=== PATIENT | female | born 1950 | race Caucasian/White ===

== ENCOUNTER 2020-05-14 11:37 | Inpatient (IN) | payer MEDICARE, OTHER ==
[~2020-05-14] VITALS: Ht 160 cm; Wt 45.0 kg
[2020-05-14] MEDS ORDERED: IV NORMAL SALINE 1000ML BAG 1,000 ML IV ONE (12:00)
[2020-05-14 12:03] LABS: BASO % 0 % (0-3); EOS % 0 % (0-3); HEMATOCRIT 42.3 % (36.0-47.0); HEMOGLOBIN 14.7 g/dL (12.0-15.5); LYMPH # 0.8 x10^3/uL (1.0-4.8); LYMPH % 15 % (24-48); MEAN CORPUSCULAR HEMOGLOBIN 31 pg (25-35); MEAN CORPUSCULAR HGB CONC 35 g/dL (31-37); MEAN CORPUSCULAR VOLUME 90 fL (79-100); MONO # 0.3 x10^3/uL (0.0-1.1); MONO % 5 % (0-9); NEUT # 4.1 x10^3/uL (1.8-7.7); NEUT % 79 % (31-73); PLATELET COUNT 308 x10^3/uL (140-400); RED BLOOD COUNT 4.72 x10^6/uL (3.50-5.40); RED CELL DISTRIBUTION WIDTH 12.9 % (11.5-14.5); WHITE BLOOD COUNT 5.2 x10^3/uL (4.0-11.0)
[2020-05-14 12:14] LABS: CALCIUM 9.3 mg/dL (8.5-10.1); CREATININE 0.6 mg/dL (0.6-1.0); GFR 99.4; POTASSIUM 3.1 mmol/L (3.5-5.1)
[2020-05-14 12:20] LABS: ALBUMIN 3.5 g/dL (3.4-5.0); ALBUMIN/GLOBULIN RATIO 1.3 (1.0-1.7); TOTAL BILIRUBIN 0.8 mg/dL (0.2-1.0); TOTAL PROTEIN 6.3 g/dL (6.4-8.2)
[2020-05-14 12:28] LABS: BILIRUBIN,URINE NEGATIVE (NEG); CLARITY,URINE CLEAR; COLOR,URINE YELLOW; NITRITE,URINE NEGATIVE (NEG); PH,URINE 6.5 (<5.0-8.0); PROTEIN,URINE NEGATIVE (NEG-TRACE); UROBILINOGEN,URINE 0.2 mg/dL (0.2 mg/dL)
[2020-05-14 12:45] LABS: AMORPHOUS SEDIMENT,UR PRESENT /HPF
[2020-05-14 12:46] LABS: BACTERIA,URINE 0 /HPF (0-FEW); WBC,URINE 0 /HPF (0-4)
--- NOTE | 2020-05-14 12:59 | PHYS DOC ---
Past Medical History Past Medical History: Unknown Past Surgical History: Other Additional Past Surgical Histo: unk Smoking Status: Unknown if ever smoked Alcohol Use: None Additional Information: unknown Social History Narrative: unknown drug use General Adult EDM: Chief Complaint: OVERDOSE HPI: HPI: Patient is a 69-year-old female with a history of anxiety and depression who presents via EMS after taking an overdose of 0.25 mg alprazolam and 5 mg Ambien. Unsure on the exact numbers of pills taken. She apparently did not take anything but those 2 medications. Patient is unable to provide any history at this time secondary to excessive somnolence [] Review of Systems: Review of Systems: Review of systems is unobtainable secondary to altered mental status Heart Score: Risk Factors: Risk Factors: DM, Current or recent (<one month) smoker, HTN, HLP, family history of CAD, obesity. Risk Scores: Score 0 - 3: 2.5% MACE over next 6 weeks - Discharge Home Score 4 - 6: 20.3% MACE over next 6 weeks - Admit for Clinical Observation Score 7 - 10: 72.7% MACE over next 6 weeks - Early Invasive Strategies Current Medications: Current Medications Medications (Trade) Dose Ordered Sig/Salty Start Time Stop Time Status Last Admin Dose Admin Sodium Chloride 1,000 ml @ 125 mls/hr Q8H 05/14/20 12:41 05/15/20 12:40 Allergies: Allergies: Allergies Coded Allergies Type Severity Reaction Last Updated Verified Unable to Assess 05/14/20 No Physical Exam: PE: Constitutional: Well developed, well nourished, no acute distress, non-toxic appearance. [] HENT: Normocephalic, atraumatic, bilateral external ears normal, oropharynx moist, no oral exudates, nose normal. [] Eyes: PERRLA, EOMI, conjunctiva normal, no discharge. [] Neck: Normal range of motion, no tenderness, supple, no stridor. [] Cardiovascular:Heart rate regular rhythm, no murmur [] Lungs & Thorax: Bilateral breath sounds clear to auscultation [] Abdomen: Bowel sounds normal, soft, no tenderness, no masses, no pulsatile masses. [] Skin: Warm, dry, no erythema, no rash. [] Back: No tenderness, no CVA tenderness. [] Extremities: No tenderness, no cyanosis, no clubbing, ROM intact, no edema. [] Neurologic: Alert and oriented X 3, normal motor function, normal sensory function, no focal deficits noted. [] Psychologic: Affect normal, judgement normal, mood normal. [] Current Patient Data: Labs: Laboratory Tests Test 05/14/20 11:44 05/14/20 11:55 White Blood Count 5.2 x10^3/uL (4.0-11.0) Red Blood Count 4.72 x10^6/uL (3.50-5.40) Hemoglobin 14.7 g/dL (12.0-15.5) Hematocrit 42.3 % (36.0-47.0) Mean Corpuscular Volume 90 fL (79-100) Mean Corpuscular Hemoglobin 31 pg (25-35) Mean Corpuscular Hemoglobin Concent 35 g/dL (31-37) Red Cell Distribution Width 12.9 % (11.5-14.5) Platelet Count 308 x10^3/uL (140-400) Neutrophils (%) (Auto) 79 % (31-73) H Lymphocytes (%) (Auto) 15 % (24-48) L Monocytes (%) (Auto) 5 % (0-9) Eosinophils (%) (Auto) 0 % (0-3) Basophils (%) (Auto) 0 % (0-3) Neutrophils # (Auto) 4.1 x10^3/uL (1.8-7.7) Lymphocytes # (Auto) 0.8 x10^3/uL (1.0-4.8) L Monocytes # (Auto) 0.3 x10^3/uL (0.0-1.1) Eosinophils # (Auto) 0.0 x10^3/uL (0.0-0.7) Basophils # (Auto) 0.0 x10^3/uL (0.0-0.2) Sodium Level 134 mmol/L (136-145) L Potassium Level 3.1 mmol/L (3.5-5.1) L Chloride Level 99 mmol/L (98-107) Carbon Dioxide Level 29 mmol/L (21-32) Anion Gap 6 (6-14) Blood Urea Nitrogen 15 mg/dL (7-20) Creatinine 0.6 mg/dL (0.6-1.0) Estimated GFR (Cockcroft-Gault) 99.4 BUN/Creatinine Ratio 25 (6-20) H Glucose Level 181 mg/dL (70-99) H Glucose (Fingerstick) 179 mg/dL (70-99) H Calcium Level 9.3 mg/dL (8.5-10.1) Magnesium Level 2.0 mg/dL (1.8-2.4) Total Bilirubin 0.8 mg/dL (0.2-1.0) Aspartate Amino Transferase (AST) 19 U/L (15-37) Alanine Aminotransferase (ALT) 30 U/L (14-59) Alkaline Phosphatase 61 U/L (46-116) Troponin I Quantitative < 0.017 ng/mL (0.000-0.055) Total Protein 6.3 g/dL (6.4-8.2) L Albumin 3.5 g/dL (3.4-5.0) Albumin/Globulin Ratio 1.3 (1.0-1.7) Thyroid Stimulating Hormone (TSH) 0.770 uIU/mL (0.358-3.74) Ethyl Alcohol Level < 10 mg/dL (0-10) Urine Collection Type Unknown Urine Color Yellow Urine Clarity Clear Urine pH 6.5 (<5.0-8.0) Urine Specific [place] 1.020 (1.000-1.030) Urine Protein Negative mg/dL (NEG-TRACE) Urine Glucose (UA) Negative mg/dL (NEG) Urine Ketones (Stick) Negative mg/dL (NEG) Urine Blood Negative (NEG) Urine Nitrite Negative (NEG) Urine Bilirubin Negative (NEG) Urine Urobilinogen Dipstick 0.2 mg/dL (0.2 mg/dL) Urine Leukocyte Esterase Negative (NEG) Urine RBC 1-2 /HPF (0-2) Urine WBC 0 /HPF (0-4) Urine Squamous Epithelial Cells None /LPF Urine Amorphous Sediment Present /HPF Urine Bacteria 0 /HPF (0-FEW) Urine Mucus Slight /LPF Laboratory Tests 05/14/20 11:44 Laboratory Tests 05/14/20 11:44 Vital Signs: Vital Signs Date Time Temp Pulse Resp B/P (MAP) Pulse Ox O2 Delivery O2 Flow Rate FiO2 05/14/20 11:40 98.6 99 16 113/63 (80) 99 Room Air 98.6 EKG: EKG: [EKG: Sinus tachycardia right bundle branch block rate of 90] Radiology/Procedures: Radiology/Procedures: [] Course & Med Decision Making: Course & Med Decision Making Pertinent Labs and Imaging studies reviewed. (See chart for details) [ED course: Evaluation reveals a 69-year-old female with a Xanax and Ambien overdose. She is very sleepy but will arouse with vigorous stimuli her vital signs have remained stable throughout her stay in the department. She is protecting her airway with no difficulty. She was given some IV fluids I spoke with the hospitalist who will admit for close observation.] Dragon Disclaimer: Dragon Disclaimer: This electronic medical record was generated, in whole or in part, using a voice recognition dictation system. Departure Departure Impression: Primary Impression: Benzodiazepine overdose Qualified Codes: T42.4X4A - Poisoning by benzodiazepines, undetermined, initial encounter Disposition: ADMITTED INPATIENT Admitting Physician: DULCE MARIA Condition: GUARDED Justicifation of Admission Dx: Justifications for Admission: Justification of Admission Dx: Yes Altered Mental Status: Altered Mental Status DOREEN RODRIGUEZ DO May 14, 2020 12:59
--- NOTE | 2020-05-14 13:21 | EKG ---
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
[2020-05-14 13:27] LABS: ACETAMIN < 2.0 mcg/ml (10-30); SALIC < 2.8 mg/dL (2.8-20.0)
[2020-05-14] MEDS ORDERED: ONDANSETRON PF 4 MG/2 ML VIAL. IVP PRN (13:45)
[2020-05-14] MEDS ORDERED: MAG HYDROX/ALUMINUM HYD/SIMETH 30 ML ORAL.SUSP PO PRN (13:45)
--- NOTE | 2020-05-14 14:02 | PDOC1 ---
History and Physical Date of Admission Date of Admission DATE: 05/14/20 TIME: 13:54 Identification/Chief Complaint Chief Complaint Overdose Source Source: Caregiver History of Present Illness History of Present Illness Patient is a 69-year-old female with past medical history of anxiety who presents to the emergency department after intentional overdose of Ambien and Xanax. History was obtained from patient's sister, who states that patient called her at 830 this morning stating that she was not feeling well. When patient's sister went to visit her at her home patient reported that she had taken 1 bottle of Ambien and 1 bottle of Xanax, and left a note saying "tell children I had heart attack, I will watch him and having ". Patient's sister notes that she has been dealing with anxiety for the past 2 weeks that has been worsening. She has been treated with Zoloft, Ambien, and Xanax. Patient sister also admits to worsening anxiety about her current job and global pandemic. Past Medical History Psych: Anxiety Past Surgical History Past Surgical History Partial colectomy Family History Family History Mother depression Social History Smoke: No ALCOHOL: none Drugs: None Current Problem List Problem List Problems Medical Problems: (1) Benzodiazepine overdose Status: Acute (2) Intentional overdose Status: Acute Current Medications Current Medications Current Medications Sodium Chloride 1,000 ml @ 1,000 mls/hr 1X ONCE IV Last administered on 05/14/20at 11:50; Start 05/14/20 at 12:00; Stop 05/14/20 at 12:59; Status DC Sodium Chloride 1,000 ml @ 125 mls/hr Q8H IV ; Start 05/14/20 at 12:41; Stop 05/15/20 at 12:40 Ondansetron HCl (Zofran) 4 mg PRN Q6HRS PRN IVP NAUSEA/VOMITING; Start 05/14/20 at 13:45; Status UNV Al Hydroxide/Mg Hydroxide (Mylanta Plus Xs) 30 ml PRN Q3HRS PRN PO HEARTBURN / GAS; Start 05/14/20 at 13:45; Status UNV Allergies Allergies: Coded Allergies: Unable to Assess (Unverified , 05/14/20) ROS Review of System Review of systems unable to be obtained due to patient's clinical condition Physical Exam General: Other (Sleeping comfortably, difficult to arouse) HEENT: PERRLA Lungs: Clear to auscultation, Normal air movement Heart: S1S2, RRR Cardiovascular: S1, S2 Abdomen: Normal bowel sounds, No tenderness Extremities: No clubbing, No edema Skin: No rashes, No breakdown Neuro: Normal tone Psych/Mental Status: Other (Somnolent) Vitals Vitals Vital Signs Date Time Temp Pulse Resp B/P (MAP) Pulse Ox O2 Delivery O2 Flow Rate FiO2 05/14/20 13:34 88 105/68 (80) 98 Nasal Cannula 3.0 05/14/20 11:40 98.6 16 98.6 Labs Labs Laboratory Tests Test 05/14/20 11:44 05/14/20 11:55 White Blood Count 5.2 x10^3/uL (4.0-11.0) Red Blood Count 4.72 x10^6/uL (3.50-5.40) Hemoglobin 14.7 g/dL (12.0-15.5) Hematocrit 42.3 % (36.0-47.0) Mean Corpuscular Volume 90 fL (79-100) Mean Corpuscular Hemoglobin 31 pg (25-35) Mean Corpuscular Hemoglobin Concent 35 g/dL (31-37) Red Cell Distribution Width 12.9 % (11.5-14.5) Platelet Count 308 x10^3/uL (140-400) Neutrophils (%) (Auto) 79 % (31-73) Lymphocytes (%) (Auto) 15 % (24-48) Monocytes (%) (Auto) 5 % (0-9) Eosinophils (%) (Auto) 0 % (0-3) Basophils (%) (Auto) 0 % (0-3) Neutrophils # (Auto) 4.1 x10^3/uL (1.8-7.7) Lymphocytes # (Auto) 0.8 x10^3/uL (1.0-4.8) Monocytes # (Auto) 0.3 x10^3/uL (0.0-1.1) Eosinophils # (Auto) 0.0 x10^3/uL (0.0-0.7) Basophils # (Auto) 0.0 x10^3/uL (0.0-0.2) Sodium Level 134 mmol/L (136-145) Potassium Level 3.1 mmol/L (3.5-5.1) Chloride Level 99 mmol/L (98-107) Carbon Dioxide Level 29 mmol/L (21-32) Anion Gap 6 (6-14) Blood Urea Nitrogen 15 mg/dL (7-20) Creatinine 0.6 mg/dL (0.6-1.0) Estimated GFR (Cockcroft-Gault) 99.4 BUN/Creatinine Ratio 25 (6-20) Glucose Level 181 mg/dL (70-99) Glucose (Fingerstick) 179 mg/dL (70-99) Calcium Level 9.3 mg/dL (8.5-10.1) Magnesium Level 2.0 mg/dL (1.8-2.4) Total Bilirubin 0.8 mg/dL (0.2-1.0) Aspartate Amino Transf (AST/SGOT) 19 U/L (15-37) Alanine Aminotransferase (ALT/SGPT) 30 U/L (14-59) Alkaline Phosphatase 61 U/L (46-116) Troponin I Quantitative < 0.017 ng/mL (0.000-0.055) Total Protein 6.3 g/dL (6.4-8.2) Albumin 3.5 g/dL (3.4-5.0) Albumin/Globulin Ratio 1.3 (1.0-1.7) Thyroid Stimulating Hormone (TSH) 0.770 uIU/mL (0.358-3.74) Salicylates Level < 2.8 mg/dL (2.8-20.0) Salicylate Last Dose Date Unknown Salicylate Last Dose Time Unknown Acetaminophen Level < 2.0 mcg/ml (10-30) Acetaminophen Last Dose Date Unknown Acetaminophen Last Dose Time Unknown Ethyl Alcohol Level < 10 mg/dL (0-10) Urine Collection Type Unknown Urine Color Yellow Urine Clarity Clear Urine pH 6.5 (<5.0-8.0) Urine Specific [place] 1.020 (1.000-1.030) Urine Protein Negative mg/dL (NEG-TRACE) Urine Glucose (UA) Negative mg/dL (NEG) Urine Ketones (Stick) Negative mg/dL (NEG) Urine Blood Negative (NEG) Urine Nitrite Negative (NEG) Urine Bilirubin Negative (NEG) Urine Urobilinogen Dipstick 0.2 mg/dL (0.2 mg/dL) Urine Leukocyte Esterase Negative (NEG) Urine RBC 1-2 /HPF (0-2) Urine WBC 0 /HPF (0-4) Urine Squamous Epithelial Cells None /LPF Urine Amorphous Sediment Present /HPF Urine Bacteria 0 /HPF (0-FEW) Urine Mucus Slight /LPF Laboratory Tests Test 05/14/20 11:44 05/14/20 11:55 White Blood Count 5.2 x10^3/uL (4.0-11.0) Red Blood Count 4.72 x10^6/uL (3.50-5.40) Hemoglobin 14.7 g/dL (12.0-15.5) Hematocrit 42.3 % (36.0-47.0) Mean Corpuscular Volume 90 fL (79-100) Mean Corpuscular Hemoglobin 31 pg (25-35) Mean Corpuscular Hemoglobin Concent 35 g/dL (31-37) Red Cell Distribution Width 12.9 % (11.5-14.5) Platelet Count 308 x10^3/uL (140-400) Neutrophils (%) (Auto) 79 % (31-73) Lymphocytes (%) (Auto) 15 % (24-48) Monocytes (%) (Auto) 5 % (0-9) Eosinophils (%) (Auto) 0 % (0-3) Basophils (%) (Auto) 0 % (0-3) Neutrophils # (Auto) 4.1 x10^3/uL (1.8-7.7) Lymphocytes # (Auto) 0.8 x10^3/uL (1.0-4.8) Monocytes # (Auto) 0.3 x10^3/uL (0.0-1.1) Eosinophils # (Auto) 0.0 x10^3/uL (0.0-0.7) Basophils # (Auto) 0.0 x10^3/uL (0.0-0.2) Sodium Level 134 mmol/L (136-145) Potassium Level 3.1 mmol/L (3.5-5.1) Chloride Level 99 mmol/L (98-107) Carbon Dioxide Level 29 mmol/L (21-32) Anion Gap 6 (6-14) Blood Urea Nitrogen 15 mg/dL (7-20) Creatinine 0.6 mg/dL (0.6-1.0) Estimated GFR (Cockcroft-Gault) 99.4 BUN/Creatinine Ratio 25 (6-20) Glucose Level 181 mg/dL (70-99) Glucose (Fingerstick) 179 mg/dL (70-99) Calcium Level 9.3 mg/dL (8.5-10.1) Magnesium Level 2.0 mg/dL (1.8-2.4) Total Bilirubin 0.8 mg/dL (0.2-1.0) Aspartate Amino Transf (AST/SGOT) 19 U/L (15-37) Alanine Aminotransferase (ALT/SGPT) 30 U/L (14-59) Alkaline Phosphatase 61 U/L (46-116) Troponin I Quantitative < 0.017 ng/mL (0.000-0.055) Total Protein 6.3 g/dL (6.4-8.2) Albumin 3.5 g/dL (3.4-5.0) Albumin/Globulin Ratio 1.3 (1.0-1.7) Thyroid Stimulating Hormone (TSH) 0.770 uIU/mL (0.358-3.74) Salicylates Level < 2.8 mg/dL (2.8-20.0) Salicylate Last Dose Date Unknown Salicylate Last Dose Time Unknown Acetaminophen Level < 2.0 mcg/ml (10-30) Acetaminophen Last Dose Date Unknown Acetaminophen Last Dose Time Unknown Ethyl Alcohol Level < 10 mg/dL (0-10) Urine Collection Type Unknown Urine Color Yellow Urine Clarity Clear Urine pH 6.5 (<5.0-8.0) Urine Specific [place] 1.020 (1.000-1.030) Urine Protein Negative mg/dL (NEG-TRACE) Urine Glucose (UA) Negative mg/dL (NEG) Urine Ketones (Stick) Negative mg/dL (NEG) Urine Blood Negative (NEG) Urine Nitrite Negative (NEG) Urine Bilirubin Negative (NEG) Urine Urobilinogen Dipstick 0.2 mg/dL (0.2 mg/dL) Urine Leukocyte Esterase Negative (NEG) Urine RBC 1-2 /HPF (0-2) Urine WBC 0 /HPF (0-4) Urine Squamous Epithelial Cells None /LPF Urine Amorphous Sediment Present /HPF Urine Bacteria 0 /HPF (0-FEW) Urine Mucus Slight /LPF VTE Prophylaxis Ordered VTE Prophylaxis Devices: No VTE Pharmacological Prophylaxi: Yes Assessment/Plan Assessment/Plan Will admit patient and monitor for intentional overdose on Ambien and Xanax. Will consult psychiatry and have patient assessed prior to discharge. Recommend discontinuing Xanax and Ambien, and initiating SSRI. Justicifation of Admission Dx: Justifications for Admission: Justification of Admission Dx: Yes Altered Mental Status: Altered Mental Status ZION CEDEÑO MD May 14, 2020 14:02
[2020-05-14 15:00] VITALS: BP 118/69
[2020-05-14] MEDS: IV NORMAL SALINE 1000ML BAG 1,000 ML IV SCH ×2 (15:37→23:53)
[2020-05-14 19:11] VITALS: BP 110/69
[2020-05-14] MEDS ORDERED: ZOLP5TAB PO (19:39)
[2020-05-14] MEDS ORDERED: ESCITALOPRAM OX10 MG PO (19:39)
[2020-05-14] MEDS ORDERED: ALPR0.254 PO (19:39)
[2020-05-14] MEDS ORDERED: SERT50TA PO (19:39)
[2020-05-14 23:06] VITALS: BP 114/69
[2020-05-15 03:10] VITALS: BP 111/53
[2020-05-15 05:01] LABS: BARBITURATES NEG (NEG); BENZODIAZEPINES POS (NEG); CANNABINOIDS NEG (NEG); COCAINE NEG (NEG); METHADONE NEG (NEG); OPIATES NEG (NEG); PHENCYCLIDINE NEG (NEG)
[2020-05-15 05:02] LABS: AMPHETAMINE/METHAMPHETAMINE NEG (NEG)
[2020-05-15 07:00] VITALS: BP 140/65
--- NOTE | 2020-05-15 07:01 | EKG ---
[facility] [address] [place] [address] Test Date: 2020-05-15 Test Time: 06:59:43 Pat Name: MARLENE MATTSON Department: Room: 524 1 Gender: F Analysis Manager: AZUL : 1950 Requested By: ZION CEDEÑO Order Number: [id number] Reading MD: Measurements Intervals [place] Rate: 83 P: 82 [place]: 148 QRS: 45 QRSD: 118 T: 36 QT: 388 QTc: 456 Interpretive Statements SINUS RHYTHM R-S TRANSITION ZONE IN V LEADS DISPLACED TO THE RIGHT LOW LIMB LEAD VOLTAGE INCOMPLETE RIGHT BUNDLE BRANCH BLOCK NO SPECIFIC ECG ABNORMALITIES RI6.02 Compared to ECG 05/14/2020 11:42:47 Left-axis deviation no longer present
[2020-05-15 07:30] LABS: BASO % 1 % (0-3); EOS % 1 % (0-3); HEMOGLOBIN 13.8 g/dL (12.0-15.5); LYMPH # 1.1 x10^3/uL (1.0-4.8); LYMPH % 19 % (24-48); MEAN CORPUSCULAR HEMOGLOBIN 31 pg (25-35); MEAN CORPUSCULAR HGB CONC 35 g/dL (31-37); MEAN CORPUSCULAR VOLUME 91 fL (79-100); MONO # 0.5 x10^3/uL (0.0-1.1); MONO % 8 % (0-9); NEUT # 4.3 x10^3/uL (1.8-7.7); NEUT % 72 % (31-73); PLATELET COUNT 254 x10^3/uL (140-400); RED BLOOD COUNT 4.41 x10^6/uL (3.50-5.40); RED CELL DISTRIBUTION WIDTH 12.8 % (11.5-14.5)
[2020-05-15] MEDS: IV NORMAL SALINE 1000ML BAG 1,000 ML IV SCH (07:48)
[2020-05-15 08:22] LABS: ALBUMIN 2.9 g/dL (3.4-5.0); ALBUMIN/GLOBULIN RATIO 1.2 (1.0-1.7); CALCIUM 8.5 mg/dL (8.5-10.1); CREATININE 0.4 mg/dL (0.6-1.0); GFR 158.7; POTASSIUM 3.6 mmol/L (3.5-5.1); TOTAL BILIRUBIN 1.1 mg/dL (0.2-1.0); TOTAL PROTEIN 5.3 g/dL (6.4-8.2)
--- NOTE | 2020-05-15 10:20 | NUR ---
LEAH following. Discussed with RN, pt admitted for intentional overdose/ SI. Pt from home with family. PAT and psych consult. LEAH made referral to [facility], pt will be seen today. LEAH will continue to follow. Addendum: 05/15/20 at 1412 by JP LYNN George met with pt, pt agreeable to referral to [facility]. Referral not faxed due to no COVID swab in ER (despite being requested by George with [facility]). COVID swab ordered. LEAH will continue to follow.
[2020-05-15 11:00] VITALS: BP 128/65
[2020-05-15] MEDS ORDERED: POTASSIUM CHLORIDE 20 MEQ TABLET.ER. PO ONE (11:30)
--- NOTE | 2020-05-15 13:54 | PDOC ---
[employer] PROGRESS NOTE Date of Service DOS: DATE: 05/15/20 TIME: 13:53 Chief Complaint Chief Complaint A/P: intentional overdose on Ambien and Xanax -this was definitely a suicide attempt. Will consult psychiatry and have patient assessed Depressive episode -with some sumi. Gated by anxiety. Recommend discontinuing Xanax and Ambien, and continuing lexapro low dose and considering a very low- dose antipsychotic/mood stabilizer as adjunctive therapy. Medically she is otherwise stable but not safe for home discharge due to her suicide attempt and continued poorly managed depression with possible underlying bipolar disorder that was uncovered by administration of SSRI, but I will defer to psychiatry for formal diagnosis. Hypokalemia - replaced Moderate protein calorie malnutrition - family practice physician assistant to see FEN - Regular diet PPX - ambulatory FULL CODE Dispo - inpatient psych transfer no medical issues, will obtain stat COVID 19 swab History of Present Illness History of Present Illness Ms Garcia is a 69-year-old female with past medical history of anxiety who presents to the emergency department after intentional overdose of Ambien and Xanax. History was obtained from patient's sister, who states that patient called her at 830 the morning of 05/14/2020 stating that she was not feeling well. When patient's sister went to visit her at her home patient reported that she had taken 1 bottle of Ambien and 1 bottle of Xanax, and left a note saying "tell children I had heart attack ". Patient's sister notes that she has been dealing with anxiety for the past 2 weeks that has been worsening. She has been treated with Zoloft 25mg, Ambien, and Xanax. Patient sister also admits to worsening anxiety about her current job and global pandemic. The patient relates that a month ago she was started on 25 mg of Zoloft for worsening anxiety and depression. She was having significant breakthrough anxiety during the day and was taking up to 3 Xanax per day while "waiting for the Zoloft to kick in". She was having difficulty sleeping and was prescribed Ambien in addition and found herself awakening after 5 mg dose and taking a second 5 mg dose after 2 hours. She started taking 10 mg nightly and was able to have 1 night of sleep 4 days ago the last 2 nights prior to admission had not slept at all. Today she admits to me that this was a suicide attempt, and she just wants to sleep. And she may attempt self-harm again because she is worried about everything in her own life and her 3 adult children. Her is bedside very supportive, she acknowledges this support and actually asked him to come back into the room after I had interviewed her privately. EKG and telemetry reviewed stable. Initially potassium was 3.1 which improved to 3.6. Her albumin is 2.9. Vitals/I&O Vitals/I&O: Vital Signs Date Time Temp Pulse Resp B/P (MAP) Pulse Ox O2 Delivery O2 Flow Rate FiO2 05/15/20 11:00 97.5 79 18 128/65 (86) 97 Nasal Cannula 2.0 97.5 I & O 05/14/20 05/14/20 05/15/20 15:00 23:00 07:00 Intake Total 1000 ml 0 ml Output Total 850 ml 800 ml Balance 1000 ml -850 ml -800 ml Physical Exam General: Alert, Oriented X3, Cooperative Heart: Regular rate, Normal S1, Normal S2 Lungs: Clear Abdomen: Normal bowel sounds, No tenderness Extremities: No clubbing, No edema Skin: No rashes, No breakdown Labs Labs: Laboratory Tests Test 05/15/20 03:43 05/15/20 06:30 Urine Opiates Screen Neg (NEG) Urine Methadone Screen Neg (NEG) Urine Barbiturates Neg (NEG) Urine Phencyclidine Screen Neg (NEG) Urine Amphetamine/Methamphetamine Neg (NEG) Urine Benzodiazepines Screen Pos (NEG) Urine Cocaine Screen Neg (NEG) Urine Cannabinoids Screen Neg (NEG) Urine Ethyl Alcohol Neg (NEG) White Blood Count 6.0 x10^3/uL (4.0-11.0) Red Blood Count 4.41 x10^6/uL (3.50-5.40) Hemoglobin 13.8 g/dL (12.0-15.5) Hematocrit 40.0 % (36.0-47.0) Mean Corpuscular Volume 91 fL (79-100) Mean Corpuscular Hemoglobin 31 pg (25-35) Mean Corpuscular Hemoglobin Concent 35 g/dL (31-37) Red Cell Distribution Width 12.8 % (11.5-14.5) Platelet Count 254 x10^3/uL (140-400) Neutrophils (%) (Auto) 72 % (31-73) Lymphocytes (%) (Auto) 19 % (24-48) Monocytes (%) (Auto) 8 % (0-9) Eosinophils (%) (Auto) 1 % (0-3) Basophils (%) (Auto) 1 % (0-3) Neutrophils # (Auto) 4.3 x10^3/uL (1.8-7.7) Lymphocytes # (Auto) 1.1 x10^3/uL (1.0-4.8) Monocytes # (Auto) 0.5 x10^3/uL (0.0-1.1) Eosinophils # (Auto) 0.0 x10^3/uL (0.0-0.7) Basophils # (Auto) 0.0 x10^3/uL (0.0-0.2) Sodium Level 141 mmol/L (136-145) Potassium Level 3.6 mmol/L (3.5-5.1) Chloride Level 106 mmol/L (98-107) Carbon Dioxide Level 28 mmol/L (21-32) Anion Gap 7 (6-14) Blood Urea Nitrogen 11 mg/dL (7-20) Creatinine 0.4 mg/dL (0.6-1.0) Estimated GFR (Cockcroft-Gault) 158.7 BUN/Creatinine Ratio 28 (6-20) Glucose Level 92 mg/dL (70-99) Calcium Level 8.5 mg/dL (8.5-10.1) Total Bilirubin 1.1 mg/dL (0.2-1.0) Aspartate Amino Transf (AST/SGOT) 15 U/L (15-37) Alanine Aminotransferase (ALT/SGPT) 26 U/L (14-59) Alkaline Phosphatase 53 U/L (46-116) Total Protein 5.3 g/dL (6.4-8.2) Albumin 2.9 g/dL (3.4-5.0) Albumin/Globulin Ratio 1.2 (1.0-1.7) Assessment and Plan Assessmemt and Plan Problems Medical Problems: (1) Benzodiazepine overdose Status: Acute Comment Review of Relevant I have reviewed the following items shade (where applicable) has been applied. Medications: Current Medications Medications (Trade) Dose Ordered Sig/Salty Route PRN Reason Start Time Stop Time Status Last Admin Dose Admin Potassium Chloride (Klor-Con) 40 meq 1X ONCE PO 05/15/20 11:30 8/20/20 11:31 DC 05/15/20 11:46 Justicifation of Admission Dx: Justifications for Admission: Justification of Admission Dx: Yes Altered Mental Status: Altered Mental Status RICH LARA MD May 15, 2020 13:54
[2020-05-15 14:54] VITALS: BP 128/78
[2020-05-15 19:00] VITALS: BP 115/61
--- NOTE | 2020-05-15 21:16 | PDOC1 ---
History & Psych Evaluation Date of Service: DOS: DATE: 05/15/20 TIME: 20:56 Source: Source: Caregiver, Chart review, Patient Identification: Identification She is a 69-year-old female with history of depression and anxiety admitted with suicidal attempt by intentional overdose Chief Complaint: Chief Complaint Suicidal attempt, depression, anxiety. History of Present Illness: HPI: She is a 69-year-old female with depression and anxiety seen for initial psychiatric assessment. She was present due to the ED following an intentional overdose of Ambien and Xanax. Reportedly, she was not feeling well and called her sister to inform that she has taken 1 bottle of Ambien and 1 bottle of Xanax and left a note saying " tell children I had heart attack I will watch him and having". Upon interview, she appears worried anxious but cooperative and interactive. He states, she cannot believe that how did she do it what forced him to do it. States, she has been struggling with depression and anxiety for a while however it was manageable for her. States, she has always been an anxious person. Anxiety also includes chest tightness when severe. 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 States, she was a started on Zoloft 25 mg daily with which she lost her sleep. Ambien was added which did not effect very much. Additionally, Xanax was given for anxiety supposedly not very helpful. States, now she is feeling better however feeling terrible about her suicidal attempt. She appears remorseful and guilty about suicide. She denies previous history of suicidal attempt or recurrent suicidal ideation. Depression and anxiety are reportedly moderate. Presently, she denies suicidal or homicidal thoughts. Denies auditory or visual hallucinations. No evidence of sumi or hypomania. Past Psychiatric History: No prior history of psychiatric illness. Recently diagnosed with depression and anxiety and is started on Zoloft 25 mg, Xanax, and Ambien. Denies previous history of suicidal attempt, suicidal ideation, or nonsuicidal self-injurious behavior. Denies history of psychiatric hospital admission. Past Medical History: Please see medical chart for details Family History: Mother has depression and anxiety. Denies history of completed suicide in family Social History: Social History: She is , lives with her . Denies tobacco abuse, alcohol abuse, or illicit substance use. Denies history legal issues Current Medications: Current Medications Current Medications Medications (Trade) Dose Ordered Sig/Salty Start Time Stop Time Status Last Admin Dose Admin Al Hydroxide/Mg Hydroxide (Mylanta Plus Xs) 30 ml PRN Q3HRS PRN 05/14/20 13:45 Olanzapine (ZyPREXA ZYDIS) 2.5 mg PRN BID PRN 05/15/20 14:00 05/15/20 15:19 2.5 MG Ondansetron HCl (Zofran) 4 mg PRN Q6HRS PRN 05/14/20 13:45 Potassium Chloride (Klor-Con) 40 meq 1X ONCE 05/15/20 11:30 05/15/20 11:31 DC 05/15/20 11:46 40 MEQ Sodium Chloride 1,000 ml @ 125 mls/hr Q8H 05/14/20 12:41 05/15/20 12:40 DC 05/15/20 07:48 125 MLS/HR Allergies: Allergies: Coded Allergies: Unable to Assess (Unverified , 05/14/20) Mental Status Examination: Mental Status Examination female appears her stated age, fairly groomed fairly nourished She appears cooperative and interactive however worried and nervous Fully alert and oriented Thought processes goal-directed Denies auditory or visual hallucinations No abnormal perception noted Denies suicidal or homicidal thoughts Mood is depressed and anxious Affect is dysthymic Insight is limited Impulse control is poor Judgment is poor Attention span and concentration fair Recent and remote memory and ROS: 14 point review of system is otherwise negative except for as stated above. Physical Exam: Refer to Physician's note. 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 MSK: No EPS, TDK, or abnormal involuntary movements Vitals: Vitals Vital Signs Date Time Temp Pulse Resp B/P (MAP) Pulse Ox O2 Delivery O2 Flow Rate FiO2 05/15/20 19:00 98.2 75 18 115/61 (79) 99 Room Air 98.2 05/15/20 14:54 2.0 Labs: Labs Laboratory Tests Test 05/14/20 11:44 05/14/20 11:55 05/15/20 03:43 05/15/20 06:30 White Blood Count 5.2 x10^3/uL (4.0-11.0) 6.0 x10^3/uL (4.0-11.0) Red Blood Count 4.72 x10^6/uL (3.50-5.40) 4.41 x10^6/uL (3.50-5.40) Hemoglobin 14.7 g/dL (12.0-15.5) 13.8 g/dL (12.0-15.5) Hematocrit 42.3 % (36.0-47.0) 40.0 % (36.0-47.0) Mean Corpuscular Volume 90 fL (79-100) 91 fL (79-100) Mean Corpuscular Hemoglobin 31 pg (25-35) 31 pg (25-35) Mean Corpuscular Hemoglobin Concent 35 g/dL (31-37) 35 g/dL (31-37) Red Cell Distribution Width 12.9 % (11.5-14.5) 12.8 % (11.5-14.5) Platelet Count 308 x10^3/uL (140-400) 254 x10^3/uL (140-400) Neutrophils (%) (Auto) 79 % (31-73) 72 % (31-73) Lymphocytes (%) (Auto) 15 % (24-48) 19 % (24-48) Monocytes (%) (Auto) 5 % (0-9) 8 % (0-9) Eosinophils (%) (Auto) 0 % (0-3) 1 % (0-3) Basophils (%) (Auto) 0 % (0-3) 1 % (0-3) Neutrophils # (Auto) 4.1 x10^3/uL (1.8-7.7) 4.3 x10^3/uL (1.8-7.7) Lymphocytes # (Auto) 0.8 x10^3/uL (1.0-4.8) 1.1 x10^3/uL (1.0-4.8) Monocytes # (Auto) 0.3 x10^3/uL (0.0-1.1) 0.5 x10^3/uL (0.0-1.1) Eosinophils # (Auto) 0.0 x10^3/uL (0.0-0.7) 0.0 x10^3/uL (0.0-0.7) Basophils # (Auto) 0.0 x10^3/uL (0.0-0.2) 0.0 x10^3/uL (0.0-0.2) Sodium Level 134 mmol/L (136-145) 141 mmol/L (136-145) Potassium Level 3.1 mmol/L (3.5-5.1) 3.6 mmol/L (3.5-5.1) Chloride Level 99 mmol/L (98-107) 106 mmol/L (98-107) Carbon Dioxide Level 29 mmol/L (21-32) 28 mmol/L (21-32) Anion Gap 6 (6-14) 7 (6-14) Blood Urea Nitrogen 15 mg/dL (7-20) 11 mg/dL (7-20) Creatinine 0.6 mg/dL (0.6-1.0) 0.4 mg/dL (0.6-1.0) Estimated GFR (Cockcroft-Gault) 99.4 158.7 BUN/Creatinine Ratio 25 (6-20) 28 (6-20) Glucose Level 181 mg/dL (70-99) 92 mg/dL (70-99) Glucose (Fingerstick) 179 mg/dL (70-99) Calcium Level 9.3 mg/dL (8.5-10.1) 8.5 mg/dL (8.5-10.1) Magnesium Level 2.0 mg/dL (1.8-2.4) Total Bilirubin 0.8 mg/dL (0.2-1.0) 1.1 mg/dL (0.2-1.0) Aspartate Amino Transf (AST/SGOT) 19 U/L (15-37) 15 U/L (15-37) Alanine Aminotransferase (ALT/SGPT) 30 U/L (14-59) 26 U/L (14-59) Alkaline Phosphatase 61 U/L (46-116) 53 U/L (46-116) Troponin I Quantitative < 0.017 ng/mL (0.000-0.055) Total Protein 6.3 g/dL (6.4-8.2) 5.3 g/dL (6.4-8.2) Albumin 3.5 g/dL (3.4-5.0) 2.9 g/dL (3.4-5.0) Albumin/Globulin Ratio 1.3 (1.0-1.7) 1.2 (1.0-1.7) Thyroid Stimulating Hormone (TSH) 0.770 uIU/mL (0.358-3.74) Salicylates Level < 2.8 mg/dL (2.8-20.0) Salicylate Last Dose Date Unknown Salicylate Last Dose Time Unknown Acetaminophen Level < 2.0 mcg/ml (10-30) Acetaminophen Last Dose Date Unknown Acetaminophen Last Dose Time Unknown Ethyl Alcohol Level < 10 mg/dL (0-10) Urine Collection Type Unknown Urine Color Yellow Urine Clarity Clear Urine pH 6.5 (<5.0-8.0) Urine Specific [place] 1.020 (1.000-1.030) Urine Protein Negative mg/dL (NEG-TRACE) Urine Glucose (UA) Negative mg/dL (NEG) Urine Ketones (Stick) Negative mg/dL (NEG) Urine Blood Negative (NEG) Urine Nitrite Negative (NEG) Urine Bilirubin Negative (NEG) Urine Urobilinogen Dipstick 0.2 mg/dL (0.2 mg/dL) Urine Leukocyte Esterase Negative (NEG) Urine RBC 1-2 /HPF (0-2) Urine WBC 0 /HPF (0-4) Urine Squamous Epithelial Cells None /LPF Urine Amorphous Sediment Present /HPF Urine Bacteria 0 /HPF (0-FEW) Urine Mucus Slight /LPF Urine Opiates Screen Neg (NEG) Urine Methadone Screen Neg (NEG) Urine Barbiturates Neg (NEG) Urine Phencyclidine Screen Neg (NEG) Urine Amphetamine/Methamphetamine Neg (NEG) Urine Benzodiazepines Screen Pos (NEG) Urine Cocaine Screen Neg (NEG) Urine Cannabinoids Screen Neg (NEG) Urine Ethyl Alcohol Neg (NEG) Laboratory Tests Test 05/15/20 03:43 05/15/20 06:30 Urine Opiates Screen Neg (NEG) Urine Methadone Screen Neg (NEG) Urine Barbiturates Neg (NEG) Urine Phencyclidine Screen Neg (NEG) Urine Amphetamine/Methamphetamine Neg (NEG) Urine Benzodiazepines Screen Pos (NEG) Urine Cocaine Screen Neg (NEG) Urine Cannabinoids Screen Neg (NEG) Urine Ethyl Alcohol Neg (NEG) White Blood Count 6.0 x10^3/uL (4.0-11.0) Red Blood Count 4.41 x10^6/uL (3.50-5.40) Hemoglobin 13.8 g/dL (12.0-15.5) Hematocrit 40.0 % (36.0-47.0) Mean Corpuscular Volume 91 fL (79-100) Mean Corpuscular Hemoglobin 31 pg (25-35) Mean Corpuscular Hemoglobin Concent 35 g/dL (31-37) Red Cell Distribution Width 12.8 % (11.5-14.5) Platelet Count 254 x10^3/uL (140-400) Neutrophils (%) (Auto) 72 % (31-73) Lymphocytes (%) (Auto) 19 % (24-48) Monocytes (%) (Auto) 8 % (0-9) Eosinophils (%) (Auto) 1 % (0-3) Basophils (%) (Auto) 1 % (0-3) Neutrophils # (Auto) 4.3 x10^3/uL (1.8-7.7) Lymphocytes # (Auto) 1.1 x10^3/uL (1.0-4.8) Monocytes # (Auto) 0.5 x10^3/uL (0.0-1.1) Eosinophils # (Auto) 0.0 x10^3/uL (0.0-0.7) Basophils # (Auto) 0.0 x10^3/uL (0.0-0.2) Sodium Level 141 mmol/L (136-145) Potassium Level 3.6 mmol/L (3.5-5.1) Chloride Level 106 mmol/L (98-107) Carbon Dioxide Level 28 mmol/L (21-32) Anion Gap 7 (6-14) Blood Urea Nitrogen 11 mg/dL (7-20) Creatinine 0.4 mg/dL (0.6-1.0) Estimated GFR (Cockcroft-Gault) 158.7 BUN/Creatinine Ratio 28 (6-20) Glucose Level 92 mg/dL (70-99) Calcium Level 8.5 mg/dL (8.5-10.1) Total Bilirubin 1.1 mg/dL (0.2-1.0) Aspartate Amino Transf (AST/SGOT) 15 U/L (15-37) Alanine Aminotransferase (ALT/SGPT) 26 U/L (14-59) Alkaline Phosphatase 53 U/L (46-116) Total Protein 5.3 g/dL (6.4-8.2) Albumin 2.9 g/dL (3.4-5.0) Albumin/Globulin Ratio 1.2 (1.0-1.7) Diagnosis: Diagnosis: 1. Suicidal attempt 2. Major depressive disorder, first episode, moderate 3. Generalized anxiety disorder Assessment: She is a 69-year-old female admitted with suicidal attempt and major depressive episode in context of major depressive disorder. Apparently, psychosocial circumstances are the major precipitating factors for her depression. However, her suicidal attempt could be the combination of many factors including psychosocial circumstances, initiation of SSRI, insomnia, and addition of hypnotics and sedatives. She is in agreement to start Remeron which would handle depression, anxiety, and insomnia. It would also help in boosting appetite and gaining weight which patient has been losing lately. Plan: Start Remeron 15 mg nightly for depression and anxiety and insomnia. Risks, benefits, alternatives of the treatment are discussed. She is in agreement with plan and voiced understanding Adverse drug reaction of the medications including but not limited to increased risk of suicidal thoughts, black box warning, weight gain, and agitation are discussed. Excessive sedation with Remeron is discussed as well. Monitor for symptoms, safety, suicidality, and adverse drug reaction. Will adjust medications accordingly. Patient's was at the bedside also agreed with the plan and expressed understanding. Thank you for involving inpatient care FLORIDALMA RANKIN MD May 15, 2020 21:16
[2020-05-15] MEDS ORDERED: MIRTAZAPINE 15 MG TABLET PO SCH (22:00)
[2020-05-15 23:00] VITALS: BP 110/63
[2020-05-16 03:00] VITALS: BP 131/73
[2020-05-16 07:24] VITALS: BP 132/74
--- NOTE | 2020-05-16 09:15 | PDOC ---
[employer] PROGRESS NOTE Date of Service DOS: DATE: 05/16/20 TIME: 09:15 Chief Complaint Chief Complaint A/P: intentional overdose on Ambien and Xanax -this was definitely a suicide attempt. Will consult psychiatry and have patient assessed Depressive episode -with some sumi. Gated by anxiety. Recommend discontinuing Xanax and Ambien, and continuing lexapro low dose and considering a very low- dose antipsychotic/mood stabilizer as adjunctive therapy. Medically she is otherwise stable but not safe for home discharge due to her suicide attempt and continued poorly managed depression with possible underlying bipolar disorder that was uncovered by administration of SSRI, but I will defer to psychiatry for formal diagnosis. 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 History was obtained from patient's sister, who states that patient called her at 830 the morning of 05/14/2020 stating that she was not feeling well. When patient's sister went to visit her at her home patient reported that she had taken 1 bottle of Ambien and 1 bottle of Xanax, and left a note saying "tell children I had heart attack ". Patient's sister notes that she has been dealing with anxiety for the past 2 weeks that has been worsening. She has been treated with Zoloft 25mg, Ambien, and Xanax. Patient sister also admits to worsening anxiety about her current job and global pandemic. The patient relates that a month ago she was started on 25 mg of Zoloft for worsening anxiety and depression. She was having significant breakthrough anxiety during the day and was taking up to 3 Xanax per day while "waiting for the Zoloft to kick in". She was having difficulty sleeping and was prescribed Ambien in addition and found herself awakening after 5 mg dose and taking a second 5 mg dose after 2 hours. She started taking 10 mg nightly and was able to have 1 night of sleep 4 days ago the last 2 nights prior to admission had not slept at all. Today she admits to me that this was a suicide attempt, and she just wants to sleep. And she may attempt self-harm again because she is worried about everything in her own life and her 3 adult children. Her is bedside very supportive, she acknowledges this support and actually asked him to come back into the room after I had interviewed her privately. 05/15: EKG and telemetry reviewed stable. Initially potassium was 3.1 which improved to 3.6. Her albumin is 2.9. Labs normalized. She slept much better after psychiatric consultation and addition of mirtazapine last night. Long conversation has been undertaken to use mirtazapine 7.5 mg to 15 mg nightly. During the day for anxiety Beverlyyprexa SANTO NANCY has been helping and she is amenable to taking 2.5 mg as needed twice daily for this. Likely this is due to her reactive depression with some insomnia this seems like a good regimen for the next 1 to 3 months. Likely she will not need long-term therapy though a long-term psychological therapy could be beneficial. She is amenable to [facility] and is medically stable for discharge at any time. Vitals/I&O Vitals/I&O: Vital Signs Date Time Temp Pulse Resp B/P (MAP) Pulse Ox O2 Delivery O2 Flow Rate FiO2 05/16/20 07:24 98.0 74 16 132/74 (93) 97 Room Air 98.0 05/15/20 14:54 2.0 I & O0 05/15/20 05/15/20 05/16/20 15:00 23:00 07:00 Intake Total 600 ml 300 ml Output Total 1350 ml 1700 ml Balance -1350 ml -1100 ml 300 ml Physical Exam General: Alert, Oriented X3, Cooperative Heart: Regular rate, Normal S1, Normal S2 Lungs: Clear Abdomen: Normal bowel sounds, No tenderness Extremities: No clubbing, No edema Skin: No rashes, No breakdown Labs Labs: Laboratory Tests Test 05/15/20 13:50 05/15/20 22:37 Coronavirus (PCR) Not detected (Not Detected) SARS-CoV-2 Antigen (Rapid) Negative (NEGATIVE) Assessment and Plan Assessmemt and Plan Problems Medical Problems: (1) Benzodiazepine overdose Status: Acute Comment Review of Relevant I have reviewed the following items shade (where applicable) has been applied. Medications: Current Medications Medications (Trade) Dose Ordered Sig/Salty Route PRN Reason Start Time Stop Time Status Last Admin Dose Admin Potassium Chloride (Klor-Con) 40 meq 1X ONCE PO 05/15/20 11:30 05/15/20 11:31 DC 05/15/20 11:46 Olanzapine (ZyPREXA ZYDIS) 2.5 mg PRN BID PRN PO ANXIETY / AGITATION 05/15/20 14:00 05/15/20 15:19 Mirtazapine (Remeron) 15 mg QHS PO 05/15/20 22:00 05/15/20 21:51 Justicifation of Admission Dx: Justifications for Admission: Justification of Admission Dx: Yes Altered Mental Status: Altered Mental Status RICH LARA MD May 16, 2020 09:15
[2020-05-16 09:57] LABS: CALCIUM 9.3 mg/dL (8.5-10.1); CREATININE 0.7 mg/dL (0.6-1.0); GFR 83.2; POTASSIUM 3.9 mmol/L (3.5-5.1)
--- NOTE | 2020-05-16 10:00 | NUR ---
SW following. Discussed with RN, pt's COVID result came back late last night. [facility] faxed referral to [facility] this morning. Awaiting acceptance decision. Pt cleared for discharge to inpatient psych per Dr. Saxena. [facility] will continue to follow. Addendum: 05/16/20 at 1449 by JP LYNN Pt accepted at [facility], accepting physician - Dr. Remy. [facility] transportation arranged for soonest available, about an hour 1545. RN and family notified. No further SW needs.
[2020-05-16 11:21] VITALS: BP 136/66
[2020-05-16] MEDS ORDERED: OLAN5TAB7 PO (12:09)
[2020-05-16] MEDS ORDERED: MIRT15TA3 PO (12:09)
[2020-05-16] MEDS ORDERED: LIDO MAALOX BENADRYL PO (12:56)
[2020-05-16] MEDS ORDERED: MAGN296S4 PO (12:56)
--- NOTE | 2020-05-16 12:58 | SNU/HH DC ---
DISCHARGE ORDERS DISCHARGE INFORMATION: DISCHARGE DATE: May 16, 2020 FINAL DIAGNOSIS Problems Medical Problems: (1) Benzodiazepine overdose Status: Acute CONDITION ON DISCHARGE: Stable CODE STATUS: Code Status: Full [facility]: SNF STAY <30 DAYS: Yes POST DISCHARGE ORDERS: ACTIVITY ORDERS: Resume previous activity WEIGHT BEARING STATUS: No restrictions DIET AFTER DISCHARGE: Regular CHECKS AFTER DISCHARGE: CHECKS AFTER DISCHARGE: Check blood press - daily, Check your Temp as needed DISCHARGE MEDICATIONS: Home Meds Active Scripts [Lido:Maalox:Benadryl 1:1:1] 180 ML ML No Conflict Check, 10 ML PO PRN QID PRN for MOUTH PAIN for 30 Days, #30 Prov:RICH LARA MD 05/16/20 Magnesium Citrate (CITROMA) 296 Ml Solution, 296 ML PO QPM PRN for CONSTIPATION for 30 Days, #30 MISC Prov:RICH LARA MD 05/16/20 Olanzapine (OLANZAPINE ODT) 5 Mg Tab.rapdis, 2.5 MG PO PRN BID PRN for ANXIETY / AGITATION for 30 Days, #30 TAB 2 Refills Prov:RICH LARA MD 05/16/20 Mirtazapine (MIRTAZAPINE) 15 Mg Tablet, 7.5-15 MG PO QHS for Sleep/Reactive Depression for 30 Days, #30 TAB 2 Refills Prov:RICH LARA MD 05/16/20 Discontinued Reported Medications Sertraline Hcl (ZOLOFT) 50 Mg Tablet, 1 TAB PO DAILY for depression, #30 TAB 2 Refills 05/14/20 Zolpidem Tartrate (AMBIEN) 5 Mg Tablet, 5 MG PO PRN QHS PRN for INSOMNIA, TAB 0 Refills 05/14/20 Escitalopram Oxalate (ESCITALOPRAM OXALATE) 10 Mg Tablet, 1 TAB PO DAILY for depression, #30 TAB 3 Refills 05/14/20 Alprazolam (ALPRAZOLAM) 0.25 Mg Tablet, 1 TAB PO TID for anxiety, #90 TAB 05/14/20 RICH LARA MD May 16, 2020 12:58
[2020-05-16] MEDS ORDERED: MAGNESIUM CITRATE 296 ML SOLUTION. PO PRN (13:00)
[2020-05-16] MEDS ORDERED: LIDO:MAALOX:BENADRYL 1:1:1 180 ML BOTTLE. PO PRN (13:00)
--- NOTE | 2020-05-16 13:18 | PDOC3 ---
Discharge Summary Visit Information Date of Admission: May 14, 2020 Date of Discharge: May 16, 2020 Admitting Diagnosis: Intentional OD Final Diagnosis Problems Medical Problems: (1) Benzodiazepine overdose Status: Acute Brief Hospital Course Allergies Allergies Coded Allergies Type Severity Reaction Last Updated Verified Unable to Assess 05/14/20 No Vital Signs Vital Signs Date Time Temp Pulse Resp B/P (MAP) Pulse Ox O2 Delivery O2 Flow Rate FiO2 05/16/20 11:21 89 18 136/66 (89) 96 Room Air 05/16/20 07:24 98.0 98.0 05/15/20 14:54 2.0 Lab Results Laboratory Tests Test 05/15/20 03:43 05/15/20 06:30 05/15/20 13:50 05/15/20 22:37 Urine Opiates Screen Neg (NEG) Urine Methadone Screen Neg (NEG) Urine Barbiturates Neg (NEG) Urine Phencyclidine Screen Neg (NEG) Urine Amphetamine/Methamphetamine Neg (NEG) Urine Benzodiazepines Screen Pos (NEG) Urine Cocaine Screen Neg (NEG) Urine Cannabinoids Screen Neg (NEG) Urine Ethyl Alcohol Neg (NEG) White Blood Count 6.0 x10^3/uL (4.0-11.0) Red Blood Count 4.41 x10^6/uL (3.50-5.40) Hemoglobin 13.8 g/dL (12.0-15.5) Hematocrit 40.0 % (36.0-47.0) Mean Corpuscular Volume 91 fL (79-100) Mean Corpuscular Hemoglobin 31 pg (25-35) Mean Corpuscular Hemoglobin Concent 35 g/dL (31-37) Red Cell Distribution Width 12.8 % (11.5-14.5) Platelet Count 254 x10^3/uL (140-400) Neutrophils (%) (Auto) 72 % (31-73) Lymphocytes (%) (Auto) 19 % (24-48) Monocytes (%) (Auto) 8 % (0-9) Eosinophils (%) (Auto) 1 % (0-3) Basophils (%) (Auto) 1 % (0-3) Neutrophils # (Auto) 4.3 x10^3/uL (1.8-7.7) Lymphocytes # (Auto) 1.1 x10^3/uL (1.0-4.8) Monocytes # (Auto) 0.5 x10^3/uL (0.0-1.1) Eosinophils # (Auto) 0.0 x10^3/uL (0.0-0.7) Basophils # (Auto) 0.0 x10^3/uL (0.0-0.2) Sodium Level 141 mmol/L (136-145) Potassium Level 3.6 mmol/L (3.5-5.1) Chloride Level 106 mmol/L (98-107) Carbon Dioxide Level 28 mmol/L (21-32) Anion Gap 7 (6-14) Blood Urea Nitrogen 11 mg/dL (7-20) Creatinine 0.4 mg/dL (0.6-1.0) Estimated GFR (Cockcroft-Gault) 158.7 BUN/Creatinine Ratio 28 (6-20) Glucose Level 92 mg/dL (70-99) Calcium Level 8.5 mg/dL (8.5-10.1) Total Bilirubin 1.1 mg/dL (0.2-1.0) Aspartate Amino Transf (AST/SGOT) 15 U/L (15-37) Alanine Aminotransferase (ALT/SGPT) 26 U/L (14-59) Alkaline Phosphatase 53 U/L (46-116) Total Protein 5.3 g/dL (6.4-8.2) Albumin 2.9 g/dL (3.4-5.0) Albumin/Globulin Ratio 1.2 (1.0-1.7) Coronavirus (PCR) Not detected (Not Detected) SARS-CoV-2 Antigen (Rapid) Negative (NEGATIVE) Test 05/16/20 09:30 Sodium Level 138 mmol/L (136-145) Potassium Level 3.9 mmol/L (3.5-5.1) Chloride Level 102 mmol/L (98-107) Carbon Dioxide Level 31 mmol/L (21-32) Anion Gap 5 (6-14) Blood Urea Nitrogen 12 mg/dL (7-20) Creatinine 0.7 mg/dL (0.6-1.0) Estimated GFR (Cockcroft-Gault) 83.2 Glucose Level 179 mg/dL (70-99) Calcium Level 9.3 mg/dL (8.5-10.1) Laboratory Tests Test 05/15/20 13:50 05/15/20 22:37 05/16/20 09:30 Coronavirus (PCR) Not detected (Not Detected) SARS-CoV-2 Antigen (Rapid) Negative (NEGATIVE) Sodium Level 138 mmol/L (136-145) Potassium Level 3.9 mmol/L (3.5-5.1) Chloride Level 102 mmol/L (98-107) Carbon Dioxide Level 31 mmol/L (21-32) Anion Gap 5 (6-14) Blood Urea Nitrogen 12 mg/dL (7-20) Creatinine 0.7 mg/dL (0.6-1.0) Estimated GFR (Cockcroft-Gault) 83.2 Glucose Level 179 mg/dL (70-99) Calcium Level 9.3 mg/dL (8.5-10.1) Brief Hospital Course Ms Garcia is a 69-year-old female with past medical history of anxiety who presents to the emergency department after intentional overdose of Ambien and Xanax. History was obtained from patient's sister, who states that patient called her at 830 the morning of 05/14/2020 stating that she was not feeling well. When patient's sister went to visit her at her home patient reported that she had taken 1 bottle of Ambien and 1 bottle of Xanax, and left a note saying "tell children I had heart attack ". Patient's sister notes that she has been dealing with anxiety for the past 2 weeks that has been worsening. She has been treated with Zoloft 25mg, Ambien, and Xanax. Patient sister also admits to worsening anxiety about her current job and global pandemic. The patient relates that a month ago she was started on 25 mg of Zoloft for worsening anxiety and depression. She was having significant breakthrough anxiety during the day and was taking up to 3 Xanax per day while "waiting for the Zoloft to kick in". She was having difficulty sleeping and was prescribed Ambien in addition and found herself awakening after 5 mg dose and taking a second 5 mg dose after 2 hours. She started taking 10 mg nightly and was able to have 1 night of sleep 4 days ago the last 2 nights prior to admission had not slept at all. Today she admits to me that this was a suicide attempt, and she just wants to sleep. And she may attempt self-harm again because she is worried about everything in her own life and her 3 adult children. Her is bedside very supportive, she acknowledges this support and actually asked him to come back into the room after I had interviewed her privately. 05/15: EKG and telemetry reviewed stable. Initially potassium was 3.1 which improved to 3.6. Her albumin is 2.9. Labs normalized. She slept much better after psychiatric consultation and addition of mirtazapine last night. Long conversation has been undertaken to use mirtazapine 7.5 mg to 15 mg nightly. During the day for anxiety Beverlyyprexrubén CRUZ has been helping and she is amenable to taking 2.5 mg as needed twice daily for this. Likely this is due to her reactive depression with some insomnia this seems like a good regimen for the next 1 to 3 months. Likely she will not need long-term therapy though a long-term psychological therapy could be beneficial. She is amenable to [facility] and is medically stable for discharge at any time. Of note she would like to take magnesium citrate supplement as needed daily for constipation, let her know this is fine. She also is complaining of a bit of a sore throat, on examination noted this is a tonsil stone which easily dislodged, she can use Magic mouthwash with lidocaine Benadryl makes to swish and spit for the next few days. Negative COVID 19 Consults: Psychiatry Problem list: intentional overdose on Ambien and Xanax -this was definitely a suicide attempt. Will consult psychiatry and have patient assessed Depressive episode -with some sumi. Gated by anxiety. Recommend discontinuing Xanax and Ambien, and continuing lexapro low dose and considering a very low- dose antipsychotic/mood stabilizer as adjunctive therapy. Medically she is otherwise stable but not safe for home discharge due to her suicide attempt and continued poorly managed depression with possible underlying bipolar disorder that was uncovered by administration of SSRI, but I will defer to psychiatry for formal diagnosis. 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 Constipation - prn mag citrate Tonsil stone - dislodged Greater than 30 minutes spent on d/c Discharge Information Condition at Discharge: Improved Follow Up: Weeks (1) Disposition/Orders: D/C to Another Facility Scheduled Mirtazapine (Mirtazapine) 15 Mg Tablet, 7.5-15 MG PO QHS for Sleep/Reactive Depression for 30 Days, #30 Ref 2 Prescribed by: RICH LARA MD on 05/16/20 1209 Scheduled PRN Magnesium Citrate (Citroma) 296 Ml Solution, 296 ML PO QPM PRN for CONSTIPATION for 30 Days, #30 Prescribed by: RICH LARA MD on 05/16/20 1256 Olanzapine (Olanzapine Odt) 5 Mg Tab.rapdis, 2.5 MG PO PRN BID PRN for ANXIETY / AGITATION for 30 Days, #30 Ref 2 Prescribed by: RICH LARA MD on 05/16/20 1209 [Lido:Maalox:Benadryl 1:1:1] 180 ML ML, 10 ML PO PRN QID PRN for MOUTH PAIN for 30 Days, #30 Prescribed by: RICH LARA MD on 05/16/20 1256 Discontinued Medications Alprazolam (Alprazolam) 0.25 Mg Tablet, 1 TAB PO TID for anxiety, #90 (Reported) Entered as Reported by: MARK OSWALD on 05/14/201938 Last Taken: Unknown Dose on Unknown Date & Time Last Action: New Order on 05/14/201938 by MARK OSWALD Escitalopram Oxalate (Escitalopram Oxalate) 10 Mg Tablet, 1 TAB PO DAILY for depression, #30 Ref 3 (Reported) Entered as Reported by: MARK OSWALD on 05/14/201938 Last Taken: Unknown Dose on Unknown Date & Time Last Action: New Order on 05/14/201938 by MARK OSWALD Sertraline Hcl (Zoloft) 50 Mg Tablet, 1 TAB PO DAILY for depression, #30 Ref 2 (Reported) Entered as Reported by: MARK OSWALD on 05/14/201938 Last Taken: Unknown Dose on Unknown Date & Time Last Action: New Order on 05/14/201938 by MARK OSWALD Zolpidem Tartrate (Ambien) 5 Mg Tablet, 5 MG PO PRN QHS PRN for INSOMNIA, Ref 0 (Reported) Entered as Reported by: MARK OSWALD on 05/14/201938 Last Taken: Unknown Dose on Unknown Date & Time Last Action: New Order on 05/14/201938 by MARK OSWALD Justicifation of Admission Dx: Justifications for Admission: Justification of Admission Dx: Yes Altered Mental Status: Altered Mental Status RICH LARA MD May 16, 2020 13:18
--- NOTE | 2020-05-16 14:10 | NUR ---
REPORT CALLED TO [facility], QUESTIONS AND CONCERNS ANSWERED, INFORMED HER THAT PATIENTS' AND DAUGHTER WOULD FOLLOW HER TO THE FACILITY.
--- NOTE | 2020-05-16 15:30 | NUR ---
PARAMEDICS HERE TO TAKE PATIENT TO [facility], MAGIC MOUTHWASH AND PRN ZYPREXA GIVEN TO PATIENT PRIOR TO DISCHARGE, PATIENT SLIGHTLY ANXIOUS AND PACING THE FLOOR, AT THE BEDSIDE FOR REASSURANCE, ALL PERSONAL BELONGINGS GATHERED BY THE PATIENT AND FAMILY AND PLACED IN BAGS FOR DISCHARGE, PATIENT LEAVES THE UNIT PER STRETCHER, EMOTIONAL SUPPORT GIVEN.
== END 2020-05-16 15:30 | DRG 918 ==
LOC: ER 11:37 → 5 NORTH 12:42
PROVIDERS: ADMIT Family Medicine; ATTEND Family Medicine
DX: T42.4X1A Poisoning by benzodiazepines, accidental (unintentional), initial encounter (principal); E44.0 Moderate protein-calorie malnutrition; Z68.1 Body mass index [BMI] 19.9 or less, adult; F32.9 Major depressive disorder, single episode, unspecified; F41.1 Generalized anxiety disorder; G47.00 Insomnia, unspecified; J35.8 Other chronic diseases of tonsils and adenoids; K59.00 Constipation, unspecified; T42.6X2A Poisoning by other antiepileptic and sedative-hypnotic drugs, intentional self-harm, initial encounter; Z20.828 Contact with and (suspected) exposure to other viral communicable diseases; Z81.8 Family history of other mental and behavioral disorders; Z91.5 Personal history of self-harm; Y92.89 Other specified places as the place of occurrence of the external cause
CPT/HCPCS: 36415; 80048; 80053; 80307; 80329; 81001; 82962; 83735; 84443; 84484; 85025; 87426; 93005; 96360; G0480; J7030; 99285-25; G0378; U0003-CS